=== PATIENT | female | born 1960 | race Caucasian/White ===

== ENCOUNTER 2021-11-01 22:27 | Emergency (ER) | payer OTHER ==
[2021-11-01 22:48] LABS: BASOPHIL 0.4 % (0-2); EOSINOPHIL 1.6 % (0-5); HCT 42.1 % (37.0-47.0); HGB 14.1 g/dl (12.5-16.0); MCH 29.1 pg (25.0-31.0); MCHC 33.5 g/dL (32.0-36.0); MCV 86.8 fL (78.0-100.0); MONOCYTE 7.4 % (0-12); NEUTROPHIL 57.9 % (41-80); NRBC 0; PLT 620 K/uL (150-400); RBC 4.85 M/uL (4.20-5.40); WBC 18.6 K/uL (4.0-10.5)
[2021-11-01 22:49] LABS: LYMPHOCYTE 31.3 % (15-48)
[2021-11-01 23:00] LABS: INR 0.96 (0.9-1.2); PROTHROMBIN TIME 12.5 SECONDS (11.9-13.9); PTT 26.9 SECONDS (24.9-34.6)
[2021-11-01 23:02] LABS: D-DIMER 0.49 ug/mLFEU (0.00-0.41)
[2021-11-01 23:09] LABS: ALBUMIN 3.3 g/dL (3.4-5.0); BILIRUBIN - TOTAL 0.2 mg/dL (0.2-1.0); BUN/CREAT RATIO (CALC) 40.8 RATIO; CREATININE 0.76 mg/dL (0.51-0.95); GLOBULIN (CALCULATION) 4.2 g/dL; POTASSIUM 4.8 mmol/L (3.5-5.1); TOTAL PROTEIN 7.5 g/dL (6.4-8.2)
[2021-11-02 00:05] LABS: CORONAVIRUS 2019 SARS-COV-2 NEGATIVE (NEGATIVE); INFLUENZA A NAA NEGATIVE (NEGATIVE)
[2021-11-02] MEDS ORDERED: PROTONIX 40MG T40 MG PO (00:49)
== END 2021-11-02 01:02 | disposition home or self-care (01) ==
LOC: FER 22:27
PROVIDERS: Emergency Medicine
DX: K29.00 Acute gastritis without bleeding (principal); D72.829 Elevated white blood cell count, unspecified; T38.0X5A Adverse effect of glucocorticoids and synthetic analogues, initial encounter; J43.9 Emphysema, unspecified; F17.210 Nicotine dependence, cigarettes, uncomplicated; Z20.822 Contact with and (suspected) exposure to COVID-19
CPT/HCPCS: 36415; 71045; 80053; 83605; 83880; 84484; 85025; 85379; 85610; 85730; 93005; U0002

== ENCOUNTER 2021-11-14 18:20 | Emergency (ER) | payer OTHER ==
[~2021-11-14 18:20] MED LIST: PROTONIX 40MG T40 MG PO
[2021-11-14 18:52] LABS: BASOPHIL 0.7 % (0-2); EOSINOPHIL 1.9 % (0-5); HCT 43.3 % (37.0-47.0); HGB 14.3 g/dl (12.5-16.0); MCH 29.4 pg (25.0-31.0); MCV 88.9 fL (78.0-100.0); MONOCYTE 4.8 % (0-12); MPV 9.3 fL (6.0-9.5); NEUTROPHIL 50.8 % (41-80); NRBC 0; PLT 524 K/uL (150-400); RBC 4.87 M/uL (4.20-5.40); RDW 13.3 % (11.5-14.0); WBC 10.6 K/uL (4.0-10.5)
[2021-11-14 18:53] LABS: LYMPHOCYTE 41.6 % (15-48)
[2021-11-14 19:14] LABS: INR 0.88 (0.9-1.2); PROTHROMBIN TIME 11.7 SECONDS (11.9-13.9); PTT 28.7 SECONDS (24.9-34.6)
[2021-11-14 19:19] LABS: ALBUMIN 3.5 g/dL (3.4-5.0); BILIRUBIN - TOTAL 0.2 mg/dL (0.2-1.0); BUN/CREAT RATIO (CALC) 21.6 RATIO; CREATININE 0.74 mg/dL (0.51-0.95); GLOBULIN (CALCULATION) 4.4 g/dL; POTASSIUM 4.3 mmol/L (3.5-5.1); TOTAL PROTEIN 7.9 g/dL (6.4-8.2)
[2021-11-14 19:24] LABS: CORONAVIRUS 2019 SARS-COV-2 NEGATIVE (NEGATIVE); INFLUENZA A NAA NEGATIVE (NEGATIVE)
[2021-11-15] MEDS ORDERED: VENTOLIN (2.5 MG/3 M INH (02:31)
[2021-11-15] MEDS ORDERED: VENTOLIN HFA IN18 GM INH (02:31)
== END 2021-11-15 02:25 | disposition home or self-care (01) ==
LOC: FER 18:20
PROVIDERS: Internal Medicine
DX: J44.1 Chronic obstructive pulmonary disease with (acute) exacerbation (principal); I45.10 Unspecified right bundle-branch block; F17.200 Nicotine dependence, unspecified, uncomplicated; Z98.890 Other specified postprocedural states; Z20.822 Contact with and (suspected) exposure to COVID-19; Z88.5 Allergy status to narcotic agent
CPT/HCPCS: 36415; 71045; 71275; 80053; 83880; 84484; 85025; 85379; 85610; 85730; 93005; 94640; 94664; J1200; J2930; J7030; Q9967; U0002